=== PATIENT | male | born 2005 | race Two or more races ===

== ENCOUNTER 2025-01-16 10:23 | Emergency (ER) | payer BC ==
[~2025-01-16] VITALS: Ht 182.9 cm; Wt 74.8 kg
[2025-01-16] MEDS ORDERED: AMOXICILLIN500 M1 PO (11:00)
== END 2025-01-16 11:28 | disposition home or self-care (01) ==
LOC: ER 10:24 → EMR PED 10:24
DX: J02.9 Acute pharyngitis, unspecified (principal)